=== PATIENT | female | born 1990 ===

== ENCOUNTER 2018-11-27 17:35 | Observation (INO) | payer MEDICAID, OTHER ==
[~2018-11-27] VITALS: Ht 162.6 cm; Wt 99.8 kg
[2018-11-27] MEDS ORDERED: TERBUTALINE SULFATE 1 MG/ML 1ML VIAL SC ONE (18:56)
[2018-11-27] MEDS ORDERED: LACTATED RINGER'S 1,000 ML IV ONE (18:58)
[2018-11-27] MEDS ORDERED: TERBUTALINE SULFATE 1 MG/ML 1ML VIAL SC SCH (19:00)
== END 2018-11-27 20:32 | disposition home or self-care (01) | DRG 566 ==
LOC: LDRP 17:35
PROVIDERS: ADMIT Specialist; ATTEND Specialist
DX: O62.9 Abnormality of forces of labor, unspecified (principal); Z3A.34 34 weeks gestation of pregnancy
CPT/HCPCS: 59025; 81002; G0378; J3105; 96365; 96372

== ENCOUNTER 2018-11-29 14:46 | Observation (INO) | payer MEDICAID ==
[2018-11-29] MEDS ORDERED: LACTATED RINGER'S 1,000 ML IV ONE (16:00)
[2018-11-29] MEDS ORDERED: BETAMETHASONE ACET (6MG/ML) 5ML VIAL IM ONE (16:00)
[2018-11-30] MEDS ORDERED: PREN-96 PO (17:49)
[2018-11-30] MEDS ORDERED: NIF10C GT (18:09)
== END 2018-11-29 17:45 | disposition home or self-care (01) | DRG 566 ==
LOC: LDRP 14:46
PROVIDERS: ADMIT Specialist; ATTEND Specialist
DX: O26.893 Other specified pregnancy related conditions, third trimester (principal); H53.8 Other visual disturbances; O62.9 Abnormality of forces of labor, unspecified; N89.8 Other specified noninflammatory disorders of vagina; O21.2 Late vomiting of pregnancy; Z3A.34 34 weeks gestation of pregnancy
CPT/HCPCS: 59025; 76815; 81002; 96372; G0378; J0702; 96365

== ENCOUNTER 2018-11-30 17:20 | Observation (INO) | payer MEDICAID ==
[2018-11-30] MEDS ORDERED: PREN-96 PO (17:49)
[2018-11-30] MEDS ORDERED: BETAMETHASONE ACET (6MG/ML) 5ML VIAL IM ONE (18:00)
[2018-11-30] MEDS ORDERED: NIF10C GT (18:09)
[2018-11-30] MEDS ORDERED: NIFEdipine 10 MG CAP PO ONE (18:15)
[2018-11-30] MEDS ORDERED: LACTATED RINGER'S 1,000 ML IV ONE (18:15)
== END 2018-11-30 20:08 | disposition home or self-care (01) | DRG 566 ==
LOC: LDRP 17:20
PROVIDERS: ADMIT Obstetrics & Gynecology; ATTEND Obstetrics & Gynecology
DX: O26.893 Other specified pregnancy related conditions, third trimester (principal); R10.9 Unspecified abdominal pain; Z3A.35 35 weeks gestation of pregnancy
CPT/HCPCS: 59025; 81002; 96372; G0378; 96366

== ENCOUNTER 2018-12-04 18:53 | Observation (INO) | payer MEDICAID ==
[~2018-12-04] VITALS: Ht 162.6 cm; Wt 100.7 kg
[~2018-12-04 18:53] MED LIST: NIF10C GT; PREN-96 PO
[2018-12-04] MEDS ORDERED: LACTATED RINGER'S 1,000 ML IV ONE (21:31)
[2018-12-04] MEDS ORDERED: TERBUTALINE SULFATE 1 MG/ML 1ML VIAL SC SCH (21:45)
== END 2018-12-04 22:50 | disposition home or self-care (01) | DRG 566 ==
LOC: LDRP 18:53
PROVIDERS: ADMIT Obstetrics & Gynecology; ATTEND Obstetrics & Gynecology
DX: O62.9 Abnormality of forces of labor, unspecified (principal); Z3A.35 35 weeks gestation of pregnancy
CPT/HCPCS: 59025; 76818; 81002; G0378; 96365